=== PATIENT | male | born 1960 | race African-American/Black ===

== ENCOUNTER 2021-08-24 12:36 | Emergency (ER) | payer OTHER ==
[2021-08-24] VITALS (13 sets, daily range): BP systolic 151–185; BP diastolic 92–118
[~2021-08-24] VITALS: Ht 175.3 cm; Wt 73.0 kg
== END 2021-08-24 15:45 | DRG 605 ==
LOC: ED 12:36
DX: S00.83XA Contusion of other part of head, initial encounter (principal); S00.03XA Contusion of scalp, initial encounter; S00.01XA Abrasion of scalp, initial encounter; T14.8XXA Other injury of unspecified body region, initial encounter; I10 Essential (primary) hypertension; G40.909 Epilepsy, unspecified, not intractable, without status epilepticus; Y04.8XXA Assault by other bodily force, initial encounter; Y92.149 Unspecified place in prison as the place of occurrence of the external cause